=== PATIENT | female | born 1950 | race Caucasian/White ===

== ENCOUNTER → 2020-03-12 14:40 | Outpatient (CLI) | payer MEDICARE, SELFPAY ==
--- NOTE | ~2020-03-12 | XR_ITS ---
EXAMINATION: XR chest 2V EXAM DATE: 03/12/2020 14:52 INDICATION: Cough . Presumed covid positive, cough started on 02/20, still coughing sob, no fever. hx asthma. TECHNIQUE: Frontal and lateral projections of the chest obtained and reviewed. Comparison is made to prior examination from 06/19/2015. FINDINGS: Mild chronic hyperinflation. The lungs are clear. There are no pleural effusions. The ca rdiomediastinal silhouette is within normal limits. There is no pneumothorax suspected. The bones a nd soft tissues are unremarkable. IMPRESSION: No acute cardiopulmonary findings. Reviewed, dictated and finalized at location B. 'S MASTER
== END ==
PROVIDERS: PCP Physician Assistant; Visit Provider Physician Assistant
DX: R05 Cough (principal)
CPT/HCPCS: 71046

== ENCOUNTER 2020-03-12 17:07 | Outpatient (CLI) | payer MEDICARE, SELFPAY ==
--- NOTE | ~2020-03-12 | CT_ITS ---
EXAMINATION: CTA chest PE protocol DATE: 03/12/2020 17:43 INDICATION: Dyspnea on exertion, recent COVID 19 TECHNIQUE: Computed tomography angiography (CTA) of the chest was performed with 100 mL Omnipaque-350 intravenous contrast timed to evaluate the pulmonary arteries. Coronal maximum intensity projection 3D-reconstructions were created by the technologist. The dose-length product (DLP) was 324.49 mGy-cm. Automated exposure control and iterative reconstruction technique were employed. COMPARISON: None. FINDINGS: The pulmonary arteries are well-opacified. No pulmonary embolism is identified. There is a 1.3 cm subsolid nodule in the medial aspect of the right lower lobe. Mild dependent atelectasis is no moise. There is no pleural effusion or pneumothorax. No pathologically enlarged thoracic lymph nodes ar e identified. The heart size is normal. The liver is diffusely low in attenuation when compared with the spleen, consistent with hepatic steatosis. There is a small sliding hiatal hernia. There is mild thoracic spondylosis. IMPRESSION: 1. No pulmonary embolism identified. 2. Subsolid nodule of the right lower lobe which could reflect sequela of recent COVID 19 infection. Follow-up CT in three months is recommended. Reviewed, dictated and finalized at location A. OLIN REPAIRER IMPRESSION: 1. No pulmonary embolism identified. 2. Subsolid nodule of the right lower lobe which could reflect sequela of recen t COVID 19 infection. Follow-up CT in three months is recommended.
[2020-03-12 17:41] LABS: Estimated Glomerular Filt Rate > 60
== END 2020-03-12 17:08 | disposition home or self-care (01) ==
PROVIDERS: PCP Physician Assistant; Visit Provider Physician Assistant
DX: R06.00 Dyspnea, unspecified (principal); M47.814 Spondylosis without myelopathy or radiculopathy, thoracic region; K44.9 Diaphragmatic hernia without obstruction or gangrene; R91.8 Other nonspecific abnormal finding of lung field
CPT/HCPCS: 71275; Q9967

== ENCOUNTER 2020-06-08 15:01 | Outpatient (CLI) | payer MEDICARE, SELFPAY ==
--- NOTE | ~2020-06-08 | CT_ITS ---
EXAMINATION: CT diagnostic chest w con DATE: 06/08/2020 15:49 INDICATION: Solitary pulmonary nodule TECHNIQUE: Transaxial computed tomographic images of the chest were obtained after the administration of 75 cc of Omnipaque 350 intravenous contrast. The dose-length product (DLP) was 156.77 mGy-cm. Ite rative reconstruction was used. COMPARISON: 03/12/2020 FINDINGS: There is an unchanged 1.3 cm subsolid nodule of the right lower lobe on image 88. No defini te solid component is identified. No new pulmonary nodule is seen. There is mild dependent atelectasi s. No pleural effusion or pneumothorax is identified. No pathologically enlarged thoracic lymph nodes are identified. The heart size is normal. There is a small sliding hiatal hernia. There is mild thor acic spondylosis. The liver is diffusely low in attenuation when compared with the spleen, consistent with hepatic steatosis. IMPRESSION: 1. Persistent subsolid nodule of the right lower lobe. Follow-up CT in 12 months is recommended. Reviewed, dictated and finalized at location A. IMPRESSION: 1. Persistent subsolid nodule of the right lower lobe. Follow-up CT in 12 month s is recommended.
[2020-06-08 15:33] LABS: Estimated Glomerular Filt Rate > 60
== END 2020-06-08 15:02 | disposition home or self-care (01) ==
PROVIDERS: PCP Physician Assistant; Visit Provider Physician Assistant
DX: R91.1 Solitary pulmonary nodule (principal); K44.9 Diaphragmatic hernia without obstruction or gangrene; M47.814 Spondylosis without myelopathy or radiculopathy, thoracic region
CPT/HCPCS: 71260; Q9967

== ENCOUNTER 2021-06-19 13:34 | Outpatient (CLI) | payer MEDICARE, SELFPAY ==
--- NOTE | ~2021-06-19 | CT_ITS ---
EXAMINATION:CT diagnostic chest w con DATE: 06/19/2021 13:57 INDICATION: Solitary pulmonary nodule. TECHNIQUE: Computed tomography (CT) of the chest was performed with 75 mL Omnipaque 350 intravenous c ontrast. Automated exposure control and iterative reconstruction technique were employed. The dose-le ngth product (DLP) was 140.90 mGy-cm. COMPARISON: Chest CT 06/08/2020, 03/12/20 FINDINGS: There is mild scarring at the lung apices. There is mild scarring in paraspinal right lower lobe. There is mild atelectasis bilaterally. There is an 11 mm part-solid nodule in right lung lower lobe with 3 mm solid component. No pleural effusion. The heart size is normal. No pericardial effusi on. There is a small sliding hiatal hernia. There is diffuse hepatic steatosis. There is mild thoraci c spondylosis. Thoracic kyphosis is noted. IMPRESSION: 1. 11 mm part-solid nodule in right lung lower lobe, stable from 03/12/20, likely benign. Reviewed, dictated and finalized at location A. IMPRESSION: 1. 11 mm part-solid nodule in right lung lower lobe, stable from 03/12/20, like ly benign.
[2021-06-19 13:58] LABS: Estimated Glomerular Filt Rate > 60
== END 2021-06-19 13:35 | disposition home or self-care (01) ==
PROVIDERS: PCP Physician Assistant; Visit Provider Physician Assistant
DX: R91.1 Solitary pulmonary nodule (principal); K44.9 Diaphragmatic hernia without obstruction or gangrene; M40.204 Unspecified kyphosis, thoracic region; M47.814 Spondylosis without myelopathy or radiculopathy, thoracic region; K76.0 Fatty (change of) liver, not elsewhere classified
CPT/HCPCS: 71260; Q9967

== ENCOUNTER 2023-10-21 21:06 | Emergency (ER) | payer MEDICARE, SELFPAY ==
--- NOTE | ~2023-10-21 | CT_ITS ---
CT of the Abdomen and Pelvis: Indication: Nausea, vomiting, diarrhea Technique: 2.5 mm axial scans were obtained through the abdomen and pelvis following intravenous adm inistration of 100 cc of Omnipaque 350. Dose reduction technique was used on this scan by utilizing a utomated exposure control and iterative reconstruction technique. The dose-length product (DLP) was 3 45.23 mGy-cm. Findings: Scans through the lung bases demonstrate 1.5 cm irregular nodule at the right lung base (a xial image 18).. There is diffuse hepatic steatosis. Small gallstone present. The spleen, pancreas, adrenals and kidne ys are within normal limits. There are atherosclerotic calcifications of the aorta. No lymphadenopat hy. No bowel obstruction or bowel wall thickening. There is no evidence to suggest acute appendicitis. Sm all fat-containing umbilical hernia noted. Images through the pelvis were performed. Urinary bladder unremarkable. No pelvic mass seen. No ascit es. Impression: 1.5 cm irregular right basilar pulmonary nodule is present, mildly increased and more confluent as co mpared to prior chest CT dated 06/19/2021. Neoplastic lesion is not excluded. Tissue sampling should be considered to establish a histologic diagnosis. PET/CT would be an alternative consideration for fur ther noninvasive evaluation. Diffuse hepatic steatosis. Cholelithiasis. Reviewed, dictated and finalized at location . Impression: 1.5 cm irregular right basilar pulmonary nodule is present, mildly increased an d more confluent as compared to prior chest CT dated 06/19/2021. Neoplastic lesio n is not excluded. Tissue sampling should be considered to establish a histolog ic diagnosis. PET/CT would be an alternative consideration for further noninvas analilia evaluation. Diffuse hepatic steatosis. Cholelithiasis.
--- NOTE | ~2023-10-21 | XR_ITS ---
Clinical Indication: Dyspnea PA and lateral views of the chest: Comparison: 03/12/2020 Findings: The lungs are clear, without evidence of focal consolidation or pleural effusion. Cardiome diastinal silhouette is within normal limits. Bones and soft tissues are unremarkable. Impression: Normal chest. Reviewed, dictated and finalized at location . Impression: Normal chest.
[2023-10-21 21:12] VITALS: BP 108/60; PULSE 64; RESP 15; TEMP 36.3; O2SAT 98
[2023-10-21 21:28] LABS: Basophils Absolute Auto 0.1 K/mm3 (0.0-0.1); Basophils Percent Auto 0.7 % (0.2-1.2); Eosinophils Absolute Auto 0.2 K/mm3 (0-0.3); Eosinophils Percent Auto 1.7 % (0-4.4); Hematocrit 42.4 % (37.0-47.0); Hemoglobin 14.5 g/dL (12.0-15.0); Immature Granulocyte Absolute 0.03 K/mm3 (0.00-0.031); Immature Granulocyte Percent A 0.3 % (0-0.5); Lymphocytes Absolute Auto 3.96 K/mm3 (0.9-3.2); Lymphocytes Percent Auto 43.1 % (18.3-44.2); Mean Corpuscular HGB Conc 34.2 g/dl (32-36); Mean Corpuscular Hemoglobin 33.1 pg (26-34); Mean Corpuscular Volume 96.8 fl (80-100); Mean Platelet Volume 10.4 fl (7.4-10.4); Monocytes Absolute Auto 0.7 K/mm3 (0.1-0.6); Monocytes Percent Auto 7.1 % (2.6-8.5); Neutrophils Absolute Auto 4.3 K/mm3 (1.3-6.7); Neutrophils Percent Auto 47.1 % (45.5-73.1); Platelet Count Result 328 k/mm3 (150-375); Red Blood Count 4.38 M/mm3 (4.2-5.4); Red Cell Distribution Width 13.5 % (11.5-14.5); White Blood Count 9.2 K/mm3 (4.5-10.0)
[2023-10-21 21:42] LABS: Alanine Aminotransferase 224 U/L (6-35); Albumin Level 4.3 g/dL (3.5-5.1); Alkaline Phosphatase 76 U/L (38-126); Anion Gap 16 mmol/L (4-12); Aspartate Amino Transferase 127 U/L (14-36); Bilirubin,Total 0.4 mg/dL (0.2-1.3); Blood Urea Nitrogen 22 mg/dL (7-17); Calcium 10.6 mg/dL (8.4-10.2); Carbon Dioxide 21 mmol/L (22-30); Chloride 99 mmol/L (98-107); Estimated CRCL calculation 43 ml/min; Estimated Glomerular Filt Rate 54; Glucose 156 mg/dL (65-110); Lipase 133 U/L (23-300); Potassium 3.5 mmol/L (3.4-5.0); Sodium 136 mmol/L (137-145)
[2023-10-21 23:50] VITALS: BP 111/85; PULSE 61; RESP 15; O2SAT 98
[2023-10-22 00:13] LABS: Add Urine Microscopic? YES; Appearance Urine Turbid (Clear); Bacteria Urine 4+ /hpf; Bilirubin Urine Negative (Negative); Blood Urine Non-Hemolyzed Trace (Negative); Color Urine Dark Yellow (Yellow); Glucose Urine UA Negative (Negative); Ketones Urine Trace mg/dL (Negative); Leukocyte Esterase Ur 3+ LEU/UL (Negative); Need Manual Microscopic Reviewed; Nitrate Urine Negative (Negative); Protein Urine Trace mg/dL (Negative); Specific Grav Ur 1.019 (1.001-1.035); Squamous Epithelial Cell Urine Many /hpf (Few); WBC Urine >100 /hpf (0-3); pH Urine 5.5 (5.0-9.0)
--- NOTE | 2023-10-22 01:03 | ECG_ITS ---
Test Date: 2023-10-22 01:59:32 Measurements Intervals Marissa Rate: 66 P: 60 SC: 188 QRS: -3 QRSD: 97 T: -13 QT: 418 QTc: 439 Interpretive Statements SINUS RHYTHM NONSPECIFIC T-WAVE ABNORMALITY BORDERLINE ECG No previous ECG available for comparison Electronically Signed On 10-22-2023 07:24:32 CDT by Eugenio Hargorve M.D.
--- NOTE | 2023-10-22 01:04 | ED.NAVMDI ---
HPI - Nausea/Vomiting/Diarrhea General Chief complaint: Nausea/Vomiting/Diarrhea Stated complaint: vomiting/diarrhea Time Seen by Provider: 10/22/23 00:30 History of Present Illness HPI Narrative: 73-year-old female presents to emergency department for nausea, vomiting and diarrhea. Patient states she was at on her patio tonight having a few alcoholic drinks and she went to move up flower pot. States the flower pot was really heavy and caused her to be short of breath. She states this is not abnormal for her and she has been getting short of breath with exertion for quite a while and attributes this to her age. She states she did not have chest pain at that time. She then went to go to the bathroom and had a bowel movement and felt unwell. States she then laid on her bed and had an episode of vomiting followed by diarrhea. She became concerned and came to the ED for further evaluation. She states she overall feels okay now and denies nausea or episodes of diarrhea since. She states her abdomen feels acid-y and is attributing this to not eating dinner. She states for nights ago when she was leaving a [email or web address] restaurant she had an episode of vomiting after that as well. She states she has a known gallstone is curious of her gallbladder may be causing her symptoms. She denies focal abdominal pain, fever, chest pain, current shortness of breath, lower extremity edema. endorses a prior history of a hysterectomy several years ago. Denies obstipation, dysuria or hematuria. Related Data Allergies Allergy/AdvReac Type Severity Reaction Status Date / Time codeine Allergy Unknown Other Verified 10/21/23 21:13 Review of Systems Review of Systems: All systems reviewed & are unremarkable except as noted in HPI and below PMFSH Family History Family History Mother Hypertension Other Cerebrovascular accident Family history of arthritis Family history of cardiovascular disease Social History Social History Smoking status: Never smoker Alcohol intake: current Exam Narrative: GENERAL: Well-appearing, well-nourished, and in no acute distress. HEAD: Normocephalic, atraumatic. EYES: PERRLA and EOMI. ENT: Nares clear, no rhinorrhea or epistaxis. Mucous membranes moist. NECK: Supple. CHEST: Clear to auscultation. No respiratory distress. HEART: Regular rate and rhythm. No murmur heard. Normal peripheral pulses. ABDOMEN: Soft, nontender, nondistended, normal active bowel sounds. no rebound, guarding or rigidity. No CVA tenderness EXTREMITIES: Normal range of motion. No edema. SKIN: Warm, dry, no rash. NEURO: No focal deficits. Alert and oriented x3 Course Vital Signs Vital signs: Vital Signs Temperature 97.4 F L 10/21/23 21:12 Pulse Rate 64 10/21/23 21:12 Respiratory Rate 15 10/21/23 21:12 Blood Pressure 108/60 10/21/23 21:12 Pulse Oximetry 98 10/21/23 21:12 Temperature 97.4 F L 10/21/23 21:12 Pulse Rate 61 10/21/23 23:50 Respiratory Rate 15 10/21/23 23:50 Blood Pressure 111/85 10/21/23 23:50 Pulse Oximetry 98 10/21/23 23:50 MDM - Nausea/Vomiting/Diarrhea MDM Narrative Medical decision making narrative: 73-year-old female presents to emergency department for N/V/D. Vitals are stable. Patient is afebrile and nontoxic appearing. Abdomen is soft and nontender. She does state her abdomen feels uncomfortable. Will obtain lab work, CT abdomen pelvis as well as chest x-ray, EKG and troponin and exertional dyspnea. However patient states is not abnormal for her. EKG shows sinus rhythm with a rate of 66 ppm a, normal AL interval, normal QRS duration, normal QTC, no ischemic changes. Troponin is undetectable. Chest x-ray shows no acute cardiopulmonary abnormalities. CBC without leukocytosis or anemia. Chemistries consistent with dehydration with a bicarb of
[2023-10-22] MEDS: SODIUM CHLORIDE 0.9% IV 1,000 ML 999 ML IV CONT (01:14)
[2023-10-22 01:32] LABS: Lactic Acid Reflex 0.9 mmol/L (0.7-2.0)
[2023-10-22 01:35] LABS: Prothrombin Time 13.3 Seconds (11.1-14.7)
[2023-10-22 01:44] LABS: Troponin I < 0.012 ng/mL (0.000-0.034)
[2023-10-22] MEDS: CEPHALEXIN 500 MG CAPSULE PO (03:06)
[2023-10-22 03:10] VITALS: BP 110/62; PULSE 62; RESP 13; O2SAT 97
--- NOTE | 2023-10-22 05:39 | PC.NURSE ---
called and left message about reread of CT scan and need for follow up care
== END 2023-10-22 03:14 | disposition home or self-care (01) ==
PROVIDERS: Emergency Medicine; Emergency Provider Physician Assistant; PCP Physician Assistant
DX: K52.9 Noninfective gastroenteritis and colitis, unspecified (principal); N39.0 Urinary tract infection, site not specified; E86.0 Dehydration; R74.01 Elevation of levels of liver transaminase levels; R94.31 Abnormal electrocardiogram [ECG] [EKG]; K76.0 Fatty (change of) liver, not elsewhere classified; K80.20 Calculus of gallbladder without cholecystitis without obstruction
CPT/HCPCS: 36415; 71046; 74177; 80053; 81001; 83605; 83690; 84484; 85025; 85610; 87086; 87088; 93005; 96360; 99284; A9270; J7030; Q9967

== ENCOUNTER 2024-02-09 10:31 | Outpatient (CLI) | payer MEDICARE, SELFPAY ==
--- NOTE | ~2024-02-09 | PE_ITS ---
EXAMINATION: PET skull to mid thigh DATE: 02/09/2024 12:28 INDICATION: Lung nodule. TECHNIQUE: Blood glucose level was 120 mg/dL. 10.909 mCi of 18-fluorodeoxyglucose (18-FDG) was admini stered i.v. Low dose computed tomography (CT) images were acquired from the base of the brain to the proximal thighs for attenuation correction and anatomic localization. Automated exposure control was employed. Dose-length product (DLP) was 826 mGy-cm. Positron emission tomography (PET) images were ac quired in the same distribution. COMPARISON: Chest CT 06/19/2021, CT abdomen and pelvis 10/22/2023 FINDINGS: Head/neck: There are no pathologically enlarged lymph nodes. Chest: The lungs demonstrate mild atelectasis. There is a 1.5 cm nodule in right lower lobe with maxi mum SUV of 2.0. No pleural effusion. The heart size is normal. No pericardial effusion. There is a sm all sliding hiatal hernia. Abdomen/pelvis/proximal thighs: There is a diffuse hepatic steatosis. There is a gallstone in the gal lbladder, which is normal in size. The spleen, pancreas, adrenal glands, and kidneys are normal. Ther e is an umbilical hernia containing fat. There is diverticulosis of the colon without evidence of div erticulitis. There are no dilated loops of bowel. The appendix is normal. There are no pathologically enlarged lymph nodes. There is no free intraperitoneal fluid. There is no osseous malignancy. IMPRESSION: 1. 1.5 cm nodule in right lung lower lobe without increased activity, worsened from 06/19/2021, suspici ous for primary bronchogenic carcinoma. CT-guided biopsy is recommended. Reviewed, dictated and finalized at location A. AU DIRECTOR IMPRESSION: 1. 1.5 cm nodule in right lung lower lobe without increased activity, worsened from 06/19/2021, suspicious for primary bronchogenic carcinoma. CT-guided biopsy is recommended.
[2024-02-09 10:59] LABS: Glucose Point of Care 120 mg/dl (65-105)
== END 2024-02-09 10:32 | disposition home or self-care (01) ==
PROVIDERS: PCP Physician Assistant; Visit Provider Physician Assistant
DX: R91.1 Solitary pulmonary nodule (principal)
CPT/HCPCS: 78815; A9552

== ENCOUNTER 2024-02-23 09:03 | Outpatient (CLI) | payer MEDICARE, SELFPAY ==
--- NOTE | 2024-02-15 15:36 | PC.NURSE ---
Pre Radiology instructions Report to the outpatient mabel underwood on date __02/23/24___ at time _0900AM for procedure Time: _1100AM___ YOU MAY BE MONITORED AT HOSPITAL FOR UP TO 4 HOURS AFTER YOUR PROCEDURE. A visitor will be allowed to accompany the patient into the hospital. You and your visitor will be asked to self-screen and do not enter if you have any COVID symptoms. A mask is OPTIONAL within the hospital. Patients are to have no food or drink 6 hours prior to procedure time Driving will be restricted after the procedure, you must have a person to drive you home. Labs will be drawn in preop area and once reviewed, you will be taken to radiology area for procedure. When the procedure is completed, you will be taken to outpatient where you will be monitored for several hours. You may have one visitor in this area. Other than holding anti-coagulants, patient may take other medication(s) as scheduled. Prior to your appointment date patients are instructed to hold anti-coagulants after discussing with ordering provider to stop. If unable to discontinue anti-coagulants please notify radiologist. ? No aspirin or warfarin (Coumadin) for 7 days prior to the procedure. ? No clopidogrel (Plavix), ticagrelor (Brilinta), prasugrel (Effient) or dabigatran (Pradaxa) for 5 days prior to the procedure. ? No rivaroxaban (Xarelto), apixaban (Eliquis), dipyridamole (Aggrenox or Persantine) or cilostazol (Pletal) for 2 days prior to the procedure. Medications to discontinue per physician: __None Date to take last dose: ___None Please leave all valuables, including medications, at home the day of procedure. The hospital will not accept responsibility for valuables. Wear comfortable, loose fitting clothing.? Follow any additional instructions given to you from ordering provider. Telephone instructions given to __Patient and asked if any additional questions and then verbalized understanding. Patient advised to call scheduling provider office or registration scheduling [phone] if any additional questions.
[2024-02-15 15:38] VITALS: BMI 25.7
[2024-02-23] VITALS (7 sets, daily range): BP systolic 98–155; BP diastolic 46–84; PULSE 62–90; RESP 18–20; TEMP 36.5; O2SAT 97–100
--- NOTE | ~2024-02-23 | CT_ITS ---
EXAMINATION: CT biopsy lung w/imaging DATE: 02/23/2024 11:57 INDICATION: Enlarging right lower lobe nodule TECHNIQUE: The procedure including the risks and benefits was discussed with the patient. Risks discu ssed included infection, approximately 1/20 risk of symptomatic hemorrhage beyond mild hemoptysis, ap proximately 1/3 risk of pneumothorax, and approximately 1/10 risk of pneumothorax severe enough to wa rrant chest tube placement. The patient understood the risks and agreed to proceed. The patient was p laced prone. The skin overlying the posterior inferior right hemithorax was prepped and draped in st erile fashion. Anesthetic was administered with 1% lidocaine subcutaneously. A 19 gauge outer needl e was advanced under CT guidance to the lesion of interest. A 20 gauge core biopsy needle was then us ed to obtain 5 core biopsy specimens. The needle was removed and the entry site was cleaned and dress ed. There were no immediate complications. The dose-length product was 223.06 mGy-cm. FINDINGS: CT images demonstrate the outer needle tip adjacent to a 1.5 cm right lower lobe nodule. IMPRESSION: 1. Successful CT-guided biopsy of a 1.5 cm right lower lobe nodule which is concerning for primary br onchogenic carcinoma. Reviewed, dictated and finalized at location A. CIATE PROFESSOR OF ART HISTORY IMPRESSION: 1. Successful CT-guided biopsy of a 1.5 cm right lower lobe nodule which is con cerning for primary bronchogenic carcinoma.
--- NOTE | ~2024-02-23 | XR_ITS ---
XR chest 1V Ordering provider: Danny Davies MD History: 73 years Female with . S/P RIGHT LUNG BIOPSY . Comparison: None. FINDINGS: MEDIASTINUM: The cardiac silhouette is not enlarged. LUNGS: No infiltrates, effusions or pneumothorax. OTHER: No free air under the diaphragm. Degenerative changes of the spine. IMPRESSION: No acute cardiopulmonary pathology. No definite pneumothorax seen. Reviewed, dictated and finalized at location A. ME PLATER
--- NOTE | ~2024-02-23 | XR_ITS ---
XR chest 1V portable Ordering provider: Danny Davies MD History: 73 years Female with . Post Image Guided Lung Biopsy . Comparison: None. FINDINGS: MEDIASTINUM: The cardiac silhouette is slightly enlarged. LUNGS: No infiltrates, effusions or pneumothorax. OTHER: No free air under the diaphragm. Degenerative the spine. IMPRESSION: No acute cardiopulmonary pathology. No definite pneumothorax seen. Reviewed, dictated and finalized at location A. F VENDOR QUALITY
--- NOTE | ~2024-02-23 | XR_ITS ---
EXAMINATION: XR chest 1V portable 02/23/2024 14:56 INDICATION: Post image guided lung biopsy. PROCEDURE: AP portable chest COMPARISON: Comparison to multiple prior studies sequentially, with oldest reviewed study dated 02/13. FINDINGS: No acute focal airspace disease. There is a focal nodular density overlying the right cardi ophrenic angle, compatible with known nodule. The cardiomediastinal silhouette is within normal limit s. There are no pleural effusions. There is no pneumothorax suspected. IMPRESSION: 1: No pneumothorax postbiopsy. 2: Right lower lobe nodule. Please refer to pathology report for results. Reviewed, dictated and finalized at location B. H CRYSTAL MOLDER
[2024-02-23] MEDS: SODIUM CHLORIDE 0.9% IV 1,000 ML 30 ML IV CONT (09:30)
[2024-02-23 09:56] LABS: Mean Platelet Volume 10.9 fl (7.4-10.4); Platelet Count Result 301 k/mm3 (150-375)
--- NOTE | 2024-02-23 15:14 | SUR.PHASEII ---
dr. mckinnon in room talking with pt
== END 2024-02-23 09:04 | disposition home or self-care (01) ==
PROVIDERS: PCP Physician Assistant; Visit Provider Radiology Diagnostic Radiology
PROC: BB24ZZZ Computerized Tomography (CT Scan) of Bilateral Lungs (ICD-10-PCS; CPT 32408; principal; 2024-02-23 11:00)
DX: R91.1 Solitary pulmonary nodule (principal)
CPT/HCPCS: 32408; 36415; 71045; 85049; 85610; 88305; 88342; J7030

== ENCOUNTER 2024-03-17 08:07 | Outpatient (CLI) | payer MEDICARE, SELFPAY ==
--- NOTE | 2024-03-17 16:04 | WPDPFTINT ---
PFT Procedure Performed PFT Procedure Performed Spirometry with Pre/Post Bronchodilator Plethysmography (Lung Vol) Diffusing Cap (DLCO) PFT Interpretation DOS: 03/17/2024 REQUESTING: Sharon Li PA-C REASON FOR TESTING: COPD PULMONARY FUNCTION TESTS Results are reliable and reproducible. Repeatability of spirometry FEV1 maneuver pre and post bronchodilator is Grade A. Spirometry: The pre-bronchodilator FEV1 is 1.84 L, 86%. The pre-bronchodilator FVC is 2.39 L, 86%. The FEV1/FVC ratio is 77%. After bronchodilator, the FEV1 is 1.98 L, 93%, +8%. The post-bronchodilator FVC is 2.59 L, 93%, +8%. The FEV1/FVC ratio is 76%. Lung volumes: The total lung capacity is 5.02 L, 99%. The residual volume is 2.40 L, 106%. The RV/TLC is 48%. Airway resistance is increased. Diffusion: DLCO is 16.3, 81%. The DLCO/VA is 4.04, 95%. Flow volume loop: The flow volume loop nonspecific. IMPRESSION: This study shows normal spirometry, normal lung volumes, and normal diffusion. Nayely Fischer MD
== END 2024-03-17 08:08 | disposition home or self-care (01) ==
PROVIDERS: PCP Physician Assistant; Visit Provider Physician Assistant
DX: J44.9 Chronic obstructive pulmonary disease, unspecified (principal)
CPT/HCPCS: 94060; 94726; 94729